=== PATIENT | female | born 1970 | race Caucasian/White ===

== ENCOUNTER 2017-12-31 05:28 | Day surgery (SDC) | payer BC ==
[~2017-12-31] VITALS: Ht 165.1 cm; Wt 64.2 kg
[2017-12-31] MEDS ORDERED: XANAX0.25 MG PO (06:20)
[2017-12-31 06:32] VITALS: BP 110/76
[2017-12-31 09:05] VITALS: BP 127/67
[2017-12-31 09:50] VITALS: BP 116/65
== END 2017-12-31 09:50 | disposition home or self-care (01) ==
LOC: SDC 05:28
DX: N93.8 Other specified abnormal uterine and vaginal bleeding (principal); N88.2 Stricture and stenosis of cervix uteri; N81.4 Uterovaginal prolapse, unspecified; N89.0 Mild vaginal dysplasia; Z79.818 Long term (current) use of other agents affecting estrogen receptors and estrogen levels
CPT/HCPCS: 84702; 88304; 88305; J0131; J0330; J0690; J1100; J1885; J2250; J2405; J3010